=== PATIENT | female | born 1985 | race Caucasian/White ===

== ENCOUNTER 2022-03-31 06:00 | Inpatient (IN) | payer BC, OTHER ==
[2022-03-30 11:42] VITALS: BMI 28.0
[2022-03-31] MEDS ORDERED: METHYLERGONOVINE 0.2 MG/ML 1 ML AMP IM PRN (06:46)
[2022-03-31] MEDS ORDERED: LIDOCAINE 0.5% (PF) 5 MG/ML (50 ML SDV) SQ PRN (06:46)
[2022-03-31] MEDS ORDERED: CARBOPROST TROMETHAMINE 250 MCG/ML 1 ML AMP IM PRN (06:46)
[2022-03-31] MEDS ORDERED: OXYTOCIN 10 UNIT/ML 1 ML VIAL IM PRN (06:46)
[2022-03-31] MEDS ORDERED: TERBUTALINE 1 MG/ML VIAL SQ PRN (06:46)
[2022-03-31] MEDS ORDERED: LACTATED RINGERS 1,000 ML IV SCH (07:00)
[2022-03-31] MEDS: LACTATED RINGERS 1,000 ML IV SCH ×4 (07:04→18:39)
[2022-03-31 07:22] LABS: Glucose,Whole Blood 85 mg/dL (70-110)
[2022-03-31 07:26] LABS: Basophils % (A) 0 %; Eosinophils # (A) 0.1 k/uL (0-0.7); Eosinophils % (A) 2 %; HCT 34.5 % (34.0-46.0); HGB 11.6 gm/dL (11.4-16.0); Lymphocytes # (A) 1.3 k/uL (1.0-4.8); Lymphocytes % (A) 21 %; MCH 30.2 pg (25.0-35.0); MCHC 33.5 g/dL (31.0-37.0); MCV 90.2 fL (80.0-100.0); Mean Platelet Volume 7.6; Monocytes # (A) 0.3 k/uL (0-1.0); Monocytes % (A) 5 %; Neutrophils # (A) 4.3 k/uL (1.3-7.7); Neutrophils % (A) 70 %; Platelet Count 251 k/uL (150-450); RBC 3.82 m/uL (3.80-5.40); RDW 13.6 % (11.5-15.5); WBC 6.2 k/uL (3.8-10.6)
[2022-03-31] MEDS ORDERED: CITRIC ACID-SODIUM CITRATE 15 ML CUP PO ONE (07:33)
--- NOTE | 2022-03-31 07:47 | P.HPOB ---
History of Present Illness H&P Date: 03/31/22 Chief Complaint: repeat low transverse 36 year old at 39 weeks 1 day presents for repeat low transverse with tubal ligation. Review of Systems All systems: negative Constitutional: Denies chills, Denies fever Eyes: denies blurred vision, denies pain Ears, nose, mouth and throat: Denies headache, Denies sore throat Cardiovascular: Denies chest pain, Denies shortness of breath Respiratory: Denies cough Gastrointestinal: Denies abdominal pain, Denies diarrhea, Denies nausea, Denies vomiting Genitourinary: Denies dysuria, Denies hematuria Musculoskeletal: Denies myalgias Integumentary: Denies pruritus, Denies rash Neurological: Denies numbness, Denies weakness Psychiatric: Denies anxiety, Denies depression Endocrine: Denies fatigue, Denies weight change Past Medical History Additional Past Medical History / Comment(s): SEASONAL ALLERGIES History of Any Multi-Drug Resistant Organisms: None Reported Past Surgical History: Section Past Anesthesia/Blood Transfusion Reactions: Motion Sickness, Postoperative Nausea & Vomiting (PONV) Past Psychological History: No Psychological Hx Reported Smoking Status: Former smoker Past Alcohol Use History: None Reported Additional Past Alcohol Use History / Comment(s): QUIT SMOKING 08/2021 Past Drug Use History: None Reported - Past Family History Mother Family Medical History: No Reported History Medications and Allergies Home Medications Medication Instructions Recorded Confirmed Type Cetirizine HCl [Zyrtec] 1 tab PO DAILY 03/02/22 03/30/22 History Cholecalciferol [Vitamin D3 (25 25 mcg PO DAILY 03/30/22 03/30/22 History Mcg = 1000 Iu)] Vits96/Iron Fum/Folic 1 each PO DAILY 03/30/22 03/30/22 History [ Tablet] Allergies Allergy/AdvReac Type Severity Reaction Status Date / Time aspirin Allergy Nausea & Verified 03/31/22 06:45 Vomiting & Diarrhea banana Allergy Anaphylaxis Verified 03/31/22 06:45 egg Allergy Anaphylaxis Verified 03/31/22 06:45 latex Allergy Rash/Hives Verified 03/31/22 06:45 Milk Containing Products Allergy Nausea & Verified 03/31/22 06:45 [Dairy] Vomiting tomato Allergy Anaphylaxis Verified 03/31/22 06:45 tree nut Allergy Anaphylaxis Verified 03/31/22 06:45 Exam Osteopathic Statement: *. No significant issues noted on an osteopathic structural exam other than those noted in the History and Physical/Consult. Intake and Output 03/30/22 03/31/22 03/31/22 22:59 06:59 14:59 Output Total 600 Balance -600 Output: Urine 600 Uretheral (Marvin) 600 Other: Weight 71.668 kg Heart: Regular rate and rhythm Lungs: Clear to auscultation bilaterally Abdomen: Soft, nontender Extremities: Negative Homans sign Results Result Diagrams: 03/31/22 07:10 Assessment and Plan (1) Previous section Current Visit: Yes Status: Acute Code(s): Z98.891 - HISTORY OF UTERINE SCAR FROM PREVIOUS SURGERY SNOMED Code(s): 236721534 (2) IUGR (intrauterine growth restriction) Current Visit: Yes Status: Acute Code(s): QJJ1236 - SNOMED Code(s): 91303583 (3) Family planning Current Visit: Yes Status: Acute Code(s): Z30.09 - ENCOUNTER FOR OTH GENERAL CNSL AND ADVICE ON CONTRACEPTION SNOMED Code(s): 107572770 Plan: 1. repeat low transverse with tubal ligation
[2022-03-31] MEDS ORDERED: NALBUPHINE 10 MG/ML (1 ML AMP) ONE (07:57)
[2022-03-31] MEDS ORDERED: ePHEDrine 50 MG/ML 1 ML VIAL ONE (07:57)
[2022-03-31] MEDS ORDERED: MORPHINE SULFATE (PF) 0.3 MG/0.3 ML SYR ONE (07:57)
[2022-03-31] MEDS ORDERED: OXYTOCIN 10 UNIT/ML 1 ML VIAL ONE (07:57)
[2022-03-31] MEDS ORDERED: ONDANSETRON 4 MG/2 ML VIAL ONE (07:57)
[2022-03-31] MEDS ORDERED: KETOROLAC 15 MG/ML 1 ML VIAL ONE (07:57)
[2022-03-31] MEDS ORDERED: diphenhydrAMINE 50 MG CAP PO PRN (08:43)
[2022-03-31] MEDS ORDERED: SIMETHICONE 80 MG CHEWABLE PO PRN (08:43)
[2022-03-31] MEDS ORDERED: NALOXONE 0.4 MG/ML 1 ML VIAL IV PRN ×2 (08:43→09:46)
[2022-03-31] MEDS ORDERED: ONDANSETRON 4 MG/2 ML VIAL IVP PRN (08:43)
[2022-03-31] MEDS ORDERED: ZOLPIDEM 5 MG TAB PO PRN (08:43)
[2022-03-31] MEDS ORDERED: METOCLOPRAMIDE 5 MG/ML 2 ML VIAL IVP PRN (08:43)
[2022-03-31] MEDS ORDERED: diphenhydrAMINE 50 MG/ML 1 ML VIAL IVP PRN ×2 (08:43)
[2022-03-31] MEDS ORDERED: diphenhydrAMINE 25 MG CAP PO PRN (08:43)
--- NOTE | 2022-03-31 08:43 | P.OP ---
Date of Procedure: 03/31/22 Preoperative Diagnosis: 1. pervious 2. IUGR 3. 39 weeks gestation 4. family planning Postoperative Diagnosis: 1. pervious 2. IUGR 3. 39 weeks gestation 4. family planning Procedure(s) Performed: Repeat low transverse with tubal ligation Anesthesia: spinal Surgeon: Rosette Almazan Account Resolution Expert #1: Severiano Aguirre Estimated Blood Loss (ml): 400 IV fluids (ml): 700 Urine output (ml): 900 Pathology: other (Fallopian tubes) Condition: stable Disposition: floor Operative Findings: Normal uterus, tubes, ovaries. Viable female, Apgars 9, 9, weight 6 lbs. 2 oz. Description of Procedure: Patient was taken to the operating room where spinal anesthesia was found be adequate. She was prepped and draped in normal sterile fashion in dorsal supine position with a leftward tilt. Pfannenstiel skin incision was made the scalpel and carried through to the underlying layer of fascia with the scalpel. Fascia was incised in midline and carried bilaterally with the Rodríguez scissors. The superior aspect of the fascial incision was grasped with Brian clamps elevated and the underlying rectus muscles dissected off with the Rodríguez's. Attention was then turned to inferior aspect of same incision which in a similar fashion was grasped tented up and the underlying rectus muscles dissected off with the Rodríguez's. The rectus muscles were the midline and the peritoneum was identified tented up and entered sharply with the scalpel. The incision was extended superiorly and inferiorly with good visualization of the bladder. The bladder blade was inserted and the vesicouterine peritoneum was incised the Metzenbaums then carried bilaterally and bladder flap created digitally. A low transverse incision was then made on the uterus with the scalpel. This was carried bilaterally and digital manner. 's head delivered atraumatically, nose and mouth bulb suctioned, cord clamped and cut, handed off to waiting nurses. Apgars 9,9, weight 6 lbs. 2 oz. Placenta delivered manually, intact with three-vessel cord. The uterus is exteriorized and cleared of all clots and debris. The uterine incision was closed with 0 Vicryl in a running locked fashion. Second layer of the same sutures used in imbricating fashion to obtain excellent hemostasis. Both ovaries and tubes appeared normal. The right fallopian tube was grasped with a hemostat and a window was made in the mesosalpinx with the Bovie. The right fallopian tube was doubly ligated a segment was removed and the pedicles were cauterized with Bovie. The left fallopian tube was grasped with hemostat and a window was made in the mesosalpinx with the Bovie. The left fallopian tube was doubly ligated and a segment was removed and the pedicles were cauterized with the Bovie. The uterus was placed back into the abdomen. The peritoneum was reapproximated using 2-0 Vicryl in a running fashion. The muscles were reapproximated using 2-0 Vicryl in interrupted fashion. The fascia was reapproximated using 0 Vicryl in a running fashion. The subcutaneous tissues closed with 3-0 Vicryl running fashion. The skin was closed marley. Patient tolerated the procedure well, sponge and instrument counts were correct times 2 and she was taken to the recovery room in stable condition.
[2022-03-31] MEDS ORDERED: OXYTOCIN 30 UNITS/500 ML NS 30 UNIT in SALINE 1 500ML.BAG IV SCH (08:45)
[2022-03-31] MEDS ORDERED: MORPHINE SULFATE 2 MG/ML SYRINGE IVP PRN (09:46)
[2022-03-31] MEDS: ACETAMINOPHEN TAB 500 MG TAB PO SCH ×2 (11:45→20:05)
[2022-03-31] MEDS: KETOROLAC 15 MG/ML 1 ML VIAL IVP SCH (11:49)
[2022-03-31] MEDS: IBUPROFEN 600 MG TAB PO SCH ×2 (16:42→21:28)
[2022-03-31] MEDS: SENNOSIDES-DOCUSATE SODIUM 1 EACH TAB PO SCH (20:06)
[2022-04-01] MEDS: ACETAMINOPHEN TAB 500 MG TAB PO SCH ×3 (01:01→12:32)
[2022-04-01] MEDS: KETOROLAC 15 MG/ML 1 ML VIAL IVP SCH ×3 (01:01→13:50)
[2022-04-01] MEDS: IBUPROFEN 600 MG TAB PO SCH ×3 (01:01→17:47)
[2022-04-01 05:47] LABS: Basophils % (A) 0 %; Eosinophils # (A) 0.1 k/uL (0-0.7); Eosinophils % (A) 1 %; HCT 31.2 % (34.0-46.0); HGB 10.5 gm/dL (11.4-16.0); Lymphocytes % (A) 11 %; MCH 30.4 pg (25.0-35.0); MCHC 33.8 g/dL (31.0-37.0); MCV 89.9 fL (80.0-100.0); Mean Platelet Volume 8.6; Monocytes # (A) 0.4 k/uL (0-1.0); Monocytes % (A) 5 %; Neutrophils # (A) 7.6 k/uL (1.3-7.7); Neutrophils % (A) 81 %; Platelet Count 217 k/uL (150-450); RBC 3.47 m/uL (3.80-5.40); RDW 13.6 % (11.5-15.5); WBC 9.3 k/uL (3.8-10.6)
--- NOTE | 2022-04-01 07:29 | P.PNOBGPC ---
Subjective - Subjective Principal diagnosis: Status post repeat low transverse with tubal ligation postop day1 Interval history: Patient seen and examined. Denies nausea, vomiting, chest pain, shortness of breath or any calf pain. She is ambulating voiding without difficulty. Patient reports: Reports appetite normal, Reports voiding normally, Reports pain well controlled, Reports ambulating normally [place]: doing well Objective - Vital Signs Latest vital signs: Vital Signs Temp Pulse Resp BP Pulse Ox 04/01/22 04:00 98.2 F 58 L 16 106/68 100 04/01/22 02:00 98.2 F 58 L 16 106/68 100 04/01/22 00:00 98.6 F 62 16 108/66 98 03/31/22 20:00 96.8 F L 58 L 16 99/58 98 03/31/22 18:00 18 98 03/31/22 16:00 97.8 F 60 18 102/63 99 03/31/22 14:47 99 03/31/22 13:50 61 16 03/31/22 12:02 64 16 104/58 99 03/31/22 11:56 97.6 F 61 16 104/65 99 03/31/22 10:47 54 L 16 117/58 100 03/31/22 10:45 52 L 16 117/58 100 03/31/22 10:15 59 L 16 119/70 100 03/31/22 09:46 61 16 101/54 100 03/31/22 09:31 64 16 108/58 100 03/31/22 09:16 65 16 113/56 99 03/31/22 09:01 72 16 110/59 99 03/31/22 08:46 97.6 F 64 16 109/53 Intake and Output 03/31/22 04/01/22 04/01/22 22:59 06:59 14:59 Intake Total 900 Output Total 1400 400 Balance -500 -400 Intake: Oral 900 Output: Urine 1400 400 Other: # Voids 1 1 - Exam Lungs: bilateral: normal Chest: Normal S1, Normal S2 Extremities: Present: normal Abdomen: Present: normal appearance, soft. Absent: distention, tenderness Incision: Present: normal, dry, intact Uterus: Present: normal, firm - Labs Labs: Abnormal Lab Results - Last 24 Hours (Table) 04/01/22 Range/Units 05:22 RBC 3.47 L (3.80-5.40) m/uL Hgb 10.5 L (11.4-16.0) gm/dL Hct 31.2 L (34.0-46.0) % Assessment and Plan (1) Previous section Current Visit: Yes Status: Resolved Code(s): Z98.891 - HISTORY OF UTERINE SCAR FROM PREVIOUS SURGERY SNOMED Code(s): 558403806 (2) IUGR (intrauterine growth restriction) Current Visit: Yes Status: Resolved Code(s): [id number] - SNOMED Code(s): 56500138 (3) Family planning Current Visit: Yes Status: Resolved Code(s): Z30.09 - ENCOUNTER FOR OTH GENERAL CNSL AND ADVICE ON CONTRACEPTION SNOMED Code(s): 747984357 (4) Status post repeat low transverse section Current Visit: Yes Status: Acute Code(s): Z98.891 - HISTORY OF UTERINE SCAR FROM PREVIOUS SURGERY SNOMED Code(s): 422904631 (5) Status post tubal ligation at time of delivery, current hosp Current Visit: Yes Status: Acute Code(s): O80 - ENCOUNTER FOR FULL-TERM UNCOMPLICATED DELIVERY; Z30.2 - ENCOUNTER FOR STERILIZATION SNOMED Code(s): 458873776 Plan: 1. Increase ambulation 2. Regular diet 3. By mouth pain medication
--- NOTE | 2022-04-01 08:33 | P.PN ---
Progress Note - Text Progress Note Date: 04/01/22 (8972) Anesthesia Postop day 1 Subjective: Status Post section with Duramorph. Patient seen and examined. Doing well without complaint. VAS 3-5. No nausea vomiting or pruritus . Gross lower extremity strength intact. . Without apparent anesthetic complications. Objective: Vital signs reviewed Heart: Regular Rate Lungs: Good chest excursion Abdomen: Appears nondistended Assessment: Status post with Duramorph postop day 1 Plan: Continue current care with your medical management. Anticipated and the Duramorph this morning, you may see increased pain needs around this time.
[2022-04-01] MEDS: SENNOSIDES-DOCUSATE SODIUM 1 EACH TAB PO SCH ×2 (12:31→20:04)
[2022-04-02] MEDS: IBUPROFEN 600 MG TAB PO SCH (07:26)
[2022-04-02] MEDS: ACETAMINOPHEN TAB 500 MG TAB PO SCH ×2 (07:26→13:25)
[2022-04-02 08:11] VITALS: BP 128/73; PULSE 63; RESP 14; TEMP 98.9
--- NOTE | 2022-04-02 08:56 | P.DS ---
Providers Date of admission: 03/31/22 06:00 Expected date of discharge: 04/02/22 Attending physician: Rosette Almazan Primary care physician: Stated None Hospital Course: This is a 36-year-old female 3 para 2 at 39 and one sevenths weeks who presented for scheduled repeat section with bilateral partial salpingectomy. She underwent the above-noted procedure and delivered a viable female with scores of 9 at 1 minute and 9 at 5 minutes and weight of 6 lbs. 2 oz. Her postoperative and course has been uncomplicated. She is passing flatus and bowel movement. Lochia is decreasing. Her pain is fairly well controlled with ibuprofen and Tylenol. She is breast- feeding. Vital signs are stable. Abdomen is soft with positive bowel sounds 4. Incision is clean dry and intact with marley in place. Extremities show negative Homans. Impression is status post repeat low transverse section with bilateral partial salpingectomy postoperative day #2. Plan is to discharge home today. Routine postoperative and instructions are given. She is advised to follow up in the office in [address] Almazan for a postoperative check and in 6 weeks for a check. She is advised to call the office if she has any further questions or concerns prior to her appointment time. She will be given a prescription for ibuprofen. Procedures: Repeat low transverse section with bilateral partial salpingectomy on 03/31/2022. Patient Condition at Discharge: Stable Plan - Discharge Summary Discharge Rx Participant: Yes New Discharge Prescriptions: New Ibuprofen [Motrin] 600 mg PO Q6H #60 tab Continue Cholecalciferol [Vitamin D3 (25 Mcg = 1000 Iu)] 25 mcg PO DAILY Vits96/Iron Fum/Folic [ Tablet] 1 each PO DAILY No Action Cetirizine HCl [Zyrtec] 1 tab PO DAILY Discharge Medication List Cetirizine HCl [Zyrtec] 1 tab PO DAILY 03/02/22 [History] Cholecalciferol [Vitamin D3 (25 Mcg = 1000 Iu)] 25 mcg PO DAILY 03/30/22 [History] Vits96/Iron Fum/Folic [ Tablet] 1 each PO DAILY 03/30/22 [History] Ibuprofen [Motrin] 600 mg PO Q6H #60 tab 04/02/22 [Rx] Follow up Appointment(s)/Referral(s): Rosette Almazan DO [Doctor of Osteopathic Medicine] - 05/09/22 11:15 am (Post Op appointment 04-12-2022 at 1:45 p.m.) Activity/Diet/Wound Care/Special Instructions: Instructions 1. Do not begin any exercise program for 3 weeks. 2. Do not resume sexual relations for 3 weeks or longer if uncomfortable. 3. You may take tub baths or showers at any time. 4. You may use tampons if desired after 3 weeks. 5. Keep the area of episiotomy (stitches) clean and dry. 6. If you are not nursing, wear a good fitting, supportive bra during the day and limit fluid intake for at least 1 week to prevent breast engorgement. 7. Call the office, [phone], within the next week to make appointment for your 6 week checkup if it has not already been made. 8. Report any of the following occurrences to the doctor promptly: a. Heavy, excessive bleeding b. Chills, fever c. Burning or frequency of urination d. Pain or redness and breasts if nursing e. Increasing pain or swelling in episiotomy (stitches). In addition to the above instructions, the following additional should be followed: 1. No heavy lifting or straining (exercising) until after 6 week checkup. 2. Keep abdominal incision clean and dry: You may wear a dressing if more comfortable. 3. Make office appointment for 10 days after going home or as instructed by her doctor. Discharge Disposition: HOME SELF-CARE
[2022-04-02] MEDS: SENNOSIDES-DOCUSATE SODIUM 1 EACH TAB PO SCH (09:30)
== END 2022-04-02 14:13 | disposition home or self-care (01) | DRG 785 ==
LOC: 4FBP 06:00
PROVIDERS: ADMIT Obstetrics & Gynecology; ATTEND Obstetrics & Gynecology
PROC: 0UB70ZZ Excision of Bilateral Fallopian Tubes, Open Approach (ICD-10-PCS; 2022-03-31)
PROC: 10D00Z1 Extraction of Products of Conception, Low, Open Approach (ICD-10-PCS; principal; 2022-03-31 08:14)
DX: O34.211 Maternal care for low transverse scar from previous cesarean delivery (principal); O36.5930 Maternal care for other known or suspected poor fetal growth, third trimester, not applicable or unspecified; O99.892 Other specified diseases and conditions complicating childbirth; J30.2 Other seasonal allergic rhinitis; Z30.2 Encounter for sterilization; Z37.0 Single live birth; Z3A.39 39 weeks gestation of pregnancy; Z87.891 Personal history of nicotine dependence; Z88.6 Allergy status to analgesic agent; Z91.012 Allergy to eggs; Z91.011 Allergy to milk products; Z91.018 Allergy to other foods
CPT/HCPCS: 85025; 86850; 86900; 86901; 88302; 88307